=== PATIENT | male | born 1985 | race African-American/Black ===

== ENCOUNTER 2016-08-20 23:44 | Emergency (ER) | payer SELFPAY ==
[~2016-08-20] VITALS: Ht 177.8 cm; Wt 68.0 kg
[2016-08-21] MEDS ORDERED: IV NS 0.9% 1,000 ML BAG IV ONE
--- NOTE | 2016-08-21 | NUR ---
31 YO MALE BB RA. PT IS ALERT X 3, PER EMS PT WAS FOUND DOWN, EMS ADMIN 2MG NARCAN, PT WOKE UP. EMS TRANSPORT TO [facility]. PT SKIN WARM AND DRY, RR EVEN AND UNLABORED. 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 SPO2 ON ROOM AIR 95%. AWAITING ORDERS FROM PROVIDER, WILL CONTINUE TO MONITOR
[2016-08-21] MEDS ORDERED: IV NS 0.9% 1,000 ML ONE (00:02)
[2016-08-21] MEDS ORDERED: IV SET PRIMARY 1 EA INFUS.SET MC ONE (00:02)
[2016-08-21 00:25] LABS: BASOPHILS # (AUTO) 0.1 /CMM (0.0-0.2); BASOPHILS % (AUTO) 0.4 % (0.0-2.0); EOSINOPHILS # (AUTO) 0.1 /CMM (0.0-0.7); EOSINOPHILS % (AUTO) 0.4 % (0.0-6.0); HEMATOCRIT 33 % (39-51); HEMOGLOBIN 11.1 g/dL (13.5-17.5); LYMPHOCYTES # (AUTO) 2.3 /CMM (0.8-4.8); MEAN CORPUSCULAR HEMOGLOBIN 29 PG (26.0-33.0); MEAN CORPUSCULAR HGB CONC 34 g/dl (31.0-36.0); MEAN CORPUSCULAR VOLUME 85 fL (80-96); MONOCYTES # (AUTO) 2.4 /CMM (0.1-1.30); MONOCYTES % (AUTO) 16.1 % (2.0-12.0); NEUTROPHILS # (AUTO) 10.2 /CMM (1.8-8.9); NEUTROPHILS % (AUTO) 68.1 % (43.0-81.0); PLATELET COUNT (AUTO) 285 /CMM (150-450); RDW COEFFICIENT OF VARIATION 13.2 (11.5-15.0); RED BLOOD CELL COUNT(AUTO) 3.84 MIL/uL (4.5-6.0)
[2016-08-21 00:38] LABS: CALCIUM, SERUM 7.6 mg/dL (8.5-10.1); CARBON DIOXIDE 29 mmol/L (21-32); CHLORIDE 98 mmol/L (98-107); GLUCOSE 95 mg/dL (74-106); POTASSIUM 3.3 mmol/L (3.5-5.1); SODIUM SERUM 134 mmol/L (136-145); UREA NITROGEN, BLOOD 11 mg/dL (7-18)
[2016-08-21 00:42] LABS: ALANINE AMINOTRANSFERASE 41 U/L (12-78); ALBUMIN 2.5 g/dL (3.4-5.0); ALKALINE PHOSPHATASE 73 U/L (46-116); ASPARTATE AMINOTRANSFERASE 45 U/L (15-37); BILIRUBIN,DIRECT 0.1 mg/dL (0.0-0.2); BILIRUBIN,TOTAL 0.2 mg/dL (0.2-1.0); TOTAL PROTEIN, SERUM 6.7 g/dL (6.4-8.2)
[2016-08-21 00:43] LABS: ACETAMINOPHEN 0 ug/ml (10-30); ALCOHOL, BLOOD < 3 mg/dL (0-0); SALICYLATE 2.3 mg/dL (2.8-20.0)
--- NOTE | 2016-08-21 00:58 | NUR ---
URINE COLLECTED. CALLED LAB FOR SAMPLE CHECKER.
[2016-08-21 01:02] LABS: BAND % (MANUAL) 1 % (0.0-5.0); LYMPHOCYTES % (MANUAL) 11 % (16-48); MONOCYTES % (MANUAL) 11 % (0-11.0); NEUTROPHILS % (MANUAL) 77 (42-76)
[2016-08-21 01:14] LABS: APPEARANCE,URINE CLEAR (CLEAR); BILIRUBIN,URINE NEGATIVE (NEGATIVE); BLOOD, URINE NEGATIVE Ery/uL (NEGATIVE); COLOR,URINE YELLOW (YELLOW); KETONES,URINE NEGATIVE (NEGATIVE); LEUKOCYTE ESTERASE ,URINE NEGATIVE (NEGATIVE); NITRITE, URINE NEGATIVE (NEGATIVE); PROTEIN,URINE 1+ mg/dl (NEGATIVE); UGLUCOSE NEGATIVE (NEGATIVE); UROBILINOGEN,URINE 0.2 EU/dL (0.2)
[2016-08-21 01:21] LABS: BACTERIA,URINE None seen /HPF (None Seen); RBC,URINE 0-2 /HPF (0-2); SQUAMOUS EPITHELIAL CELL,UR Rare /HPF (None Seen); WBC,URINE 0-2 /HPF (0-3)
--- NOTE | 2016-08-21 06:35 | NUR ---
IV removed. Catheter intact and site benign. Pressure and 4x4 applied to site. No bleeding noted. Patient discharged to home in stable condition. Written and verbal after care instructions given. Patient verbalizes understanding of instruction. ambulatory with a steady gait.
[2016-08-21 06:36] VITALS: BP 106/58
== END 2016-08-21 06:37 | disposition home or self-care (01) ==
LOC: ER 23:45
DX: F19.10 Other psychoactive substance abuse, uncomplicated (principal)
CPT/HCPCS: 36415; 80048; 80076; 80305; 80329; 81001; 85025; 93005; 96360; 99285; A4606; G0480 ×2; J7030; Z7610; 81000-TC